=== PATIENT | male | born 1935 | race Caucasian/White ===

== ENCOUNTER 2018-03-03 08:31 | Outpatient (CLI) | payer MEDICARE, OTHER ==
[2018-03-03 09:47] LABS: #Basophils 0.1 thou/uL (0.0-0.2); #Eosinphils 0.1 thou/uL (0.0-0.7); #Lymphocytes 1.5 thou/uL (1.20-3.40); #Monocytes 0.5 thou/uL (0.11-0.59); #Neutrophils 4.2 thou/uL (1.40-6.50); %Basophils 1.4 % (0.0-1.0); %Eosinophils 2.2 % (0.0-10.0); %Lymphocytes 23.7 % (21.0-51.0); %Monocytes 7.6 % (0.0-10.0); %Neutrophils 65.1 % (42.0-75.0); Hemoglobin 14.5 g/dL (14.0-18.0); Mean Corpuscular HGB CONC 31.6 g/dL (32.0-36.0); Mean Corpuscular Hemoglobin 29.2 pg (27.0-31.0); Mean Corpuscular Volume 92.3 fL (78.0-98.0); Mean Platelet Volume 8.5 fL (7.4-10.4); Platelet Count 194 thou/uL (130-400); RBC Distribution Width 12.7 % (11.5-14.5); Red Blood Cell (RBC) Count 4.96 mill/uL (4.70-6.10); White Blood Cell (WBC) Count 6.4 thou/uL (4.8-10.8)
[2018-03-03 10:08] LABS: ALT (SGPT) 16 U/L (8-55); AST (SGOT) 17 U/L (5-34); Albumin 4.3 g/dL (3.4-4.8); Alkaline Phosphatase 77 U/L (40-150); Anion Gap 12 mmol/L (10-20); BUN (Urea Nitrogen) 15 mg/dL (8.4-25.7); Bilirubin, Total 1.2 mg/dL (0.2-1.2); Calc. Creatinine Clearance 0 mL/min (70-130); Calcium 9.9 mg/dL (7.8-10.44); Carbon Dioxide 26 mmol/L (23-31); Chloride 103 mmol/L (98-107); Estimated GFR-MDRD 67; Globulin 2.9 g/dL (2.4-3.5); Glucose 121 mg/dL (83-110); Potassium 4.4 mmol/L (3.5-5.1); Protein, Total 7.2 g/dL (5.8-8.1); Sodium 137 mmol/L (136-145)
== END 2018-03-03 08:32 | disposition home or self-care (01) ==
LOC: LABBT 08:31
PROVIDERS: ATTEND Internal Medicine Cardiovascular Disease
DX: Z01.812 Encounter for preprocedural laboratory examination (principal); I25.10 Atherosclerotic heart disease of native coronary artery without angina pectoris
CPT/HCPCS: 80053; 85025

== ENCOUNTER 2018-03-07 05:55 | Day surgery (SDC) | payer MEDICARE, OTHER ==
[2018-03-03 09:07] VITALS: BMI 27.3
[2018-03-07] MEDS ORDERED: Lidocaine 1% (PF) 30 ML VIAL ONE (06:36)
[2018-03-07] MEDS ORDERED: Midazolam HCl 2 mg/2 ml Vial ONE (07:28)
[2018-03-07] MEDS ORDERED: Fentanyl 100 MCG/2 ML VIAL ONE (07:28)
[2018-03-07] MEDS ORDERED: Iopamidol 370 76% 100 ML VIAL ONE (09:01)
== END 2018-03-07 13:30 | disposition home or self-care (01) ==
LOC: CCL 05:55
PROVIDERS: ATTEND Internal Medicine Cardiovascular Disease
PROC: 4A023N7 Measurement of Cardiac Sampling and Pressure, Left Heart, Percutaneous Approach (ICD-10-PCS; principal; 2018-03-07)
PROC: B2111ZZ Fluoroscopy of Multiple Coronary Arteries using Low Osmolar Contrast (ICD-10-PCS; 2018-03-07)
DX: I25.10 Atherosclerotic heart disease of native coronary artery without angina pectoris (principal); I11.0 Hypertensive heart disease with heart failure; I50.22 Chronic systolic (congestive) heart failure; I47.2 Ventricular tachycardia; I45.10 Unspecified right bundle-branch block; I25.2 Old myocardial infarction; E78.00 Pure hypercholesterolemia, unspecified; E11.9 Type 2 diabetes mellitus without complications; E78.5 Hyperlipidemia, unspecified; Z79.02 Long term (current) use of antithrombotics/antiplatelets; Z79.82 Long term (current) use of aspirin; Z79.84 Long term (current) use of oral hypoglycemic drugs; Z79.899 Other long term (current) drug therapy; Z95.810 Presence of automatic (implantable) cardiac defibrillator; Z95.1 Presence of aortocoronary bypass graft; Z95.5 Presence of coronary angioplasty implant and graft
CPT/HCPCS: 76942; 93459; C1769; 99152; 99153; J1644; J2001; J2250; J3010

== ENCOUNTER 2018-03-18 08:31 | Emergency (ER) | payer MEDICARE, OTHER ==
[2018-03-18] MEDS ORDERED: Mineral Oil ENEMA ONE (08:58)
== END 2018-03-18 09:32 | disposition home or self-care (01) ==
LOC: SCSER 08:31
DX: K59.00 Constipation, unspecified (principal); E11.9 Type 2 diabetes mellitus without complications; I25.2 Old myocardial infarction; E78.5 Hyperlipidemia, unspecified
CPT/HCPCS: 99283

== ENCOUNTER 2019-04-14 09:58 | Observation (INO) | payer MEDICARE, OTHER ==
[2019-04-14 10:42] LABS: Eosinophils 1 % (0-10); Hemoglobin 16.1 g/dL (14.0-18.0); Lymphocytes 15 % (21-51); MDiff Complete? YES; Mean Corpuscular HGB CONC 32.3 g/dL (32.0-36.0); Mean Corpuscular Hemoglobin 29.3 pg (27.0-31.0); Mean Corpuscular Volume 90.7 fL (78.0-98.0); Mean Platelet Volume 11.1 fL (7.4-10.4); Monocytes 4 % (0-10); Neutrophil 77 % (42-75); Platelet Count 201 thou/uL (130-400); Platelet Morphology Comment Appears Adequate; RBC Distribution Width 13.6 % (11.5-14.5); Reactive Lymphocytes 2 % (0-10); White Blood Cell (WBC) Count 9.4 thou/uL (4.8-10.8)
[2019-04-14] MEDS ORDERED: Aspirin Chewable 81 MG TAB ONE (10:47)
[2019-04-14 10:59] LABS: ALT (SGPT) 28 U/L (8-55); AST (SGOT) 26 U/L (5-34); Albumin 4.2 g/dL (3.4-4.8); Alkaline Phosphatase 75 U/L (40-110); Anion Gap 15 mmol/L (10-20); BUN (Urea Nitrogen) 19 mg/dL (8.4-25.7); Bilirubin, Total 0.8 mg/dL (0.2-1.2); CK (CPK) 64 U/L (30-200); Calc. Creatinine Clearance 0 mL/min (70-130); Calcium 9.7 mg/dL (7.8-10.44); Carbon Dioxide 24 mmol/L (23-31); Chloride 105 mmol/L (98-107); Estimated GFR-MDRD 72; Globulin 2.7 g/dL (2.4-3.5); Glucose 138 mg/dL (83-110); Lipase 13 U/L (8-78); Potassium 4.9 mmol/L (3.5-5.1); Protein, Total 6.9 g/dL (5.8-8.1); Sodium 139 mmol/L (136-145)
[2019-04-14] MEDS ORDERED: Acetaminophen/Codeine 30-300mg Tablet ONE (11:11)
[2019-04-14] MEDS ORDERED: Acetaminophen 500 MG TAB ONE (11:12)
[2019-04-14] MEDS ORDERED: Acetaminophen 325 MG TAB PO PRN (11:20)
[2019-04-14] MEDS ORDERED: Ondansetron PF 4 MG/2 ML Vial IVP PRN (11:20)
[2019-04-14] MEDS ORDERED: Ondansetron ODT 4 MG TAB SL PRN (11:20)
--- NOTE | 2019-04-14 11:33 | RAD ---
PORTABLE CHEST 1 VIEW: Date: 04/14/19 Time: 1014 hours HISTORY: Chest pain. FINDINGS: Comparison made with exam of 10/27/14. There are changes of median sternotomy. A right-sided AICD is present. There are leads from a previou s AICD on the left. The heart size is normal. No focal areas of consolidation, pneumothoraces, or ple ural effusions are seen. IMPRESSION: No acute process. POS: [facility]
[2019-04-14 13:46] VITALS: BMI 27.2
[2019-04-14 14:57] LABS: Troponin I 0.021 ng/mL (< 0.028)
[2019-04-14 18:35] LABS: Troponin I 0.022 ng/mL (< 0.028)
[2019-04-14] MEDS ORDERED: Senokot S 8.6-50 MG TAB PO PRN (19:47)
[2019-04-14] MEDS ORDERED: HYDROcodone/Acetaminophen 5/325 mg Tablet PO PRN ×2 (19:47)
[2019-04-14] MEDS ORDERED: Dextrose 5% in Water 1,000 ML IV PRN (19:51)
[2019-04-14] MEDS ORDERED: HumaLOG 300 UNITS/3 ML VIAL SC PRN (19:51)
[2019-04-14] MEDS ORDERED: Dextrose 50% Abboject 50 ML SYRINGE SLOW IVP PRN (19:51)
[2019-04-14] MEDS: Carvedilol 3.125 MG TAB PO SCH (20:16)
[2019-04-14] MEDS: Famotidine 20 MG TAB PO SCH (20:16)
[2019-04-14] MEDS: Sotalol HCl 80 MG TAB PO SCH (20:16)
[2019-04-14] MEDS ORDERED: Atorvastatin Calcium 40 MG TAB PO SCH (21:00)
[2019-04-14] MEDS ORDERED: Magnesium Oxide 250 MG TAB PO SCH (21:00)
--- NOTE | 2019-04-15 00:28 | HP ---
PRIMARY CARE PHYSICIAN: Dr. Gudino. AIRCRAFT RESTORER: Dr. Whitfield. CHIEF COMPLAINT: Chest pain, palpitations. HISTORY OF PRESENT ILLNESS: Mr. Ya is a very pleasant 83-year-old man, who reported to the emergency room today after he was having right-sided chest pain, that moved to the left side. He reports that he was having episodes of low blood pressure with systolic in the 80s to 110s and had been having palpitations for the last 4 days. Reports that he takes sotalol and that the symptoms have been resolving. Reports that he got up this morning around 4:30, started having symptoms, took his medication, and when they did not go away over the next couple of hours with the sotalol, then the patient came to the emergency room. The patient's EKG in the emergency room showed paced rhythm, beats per minute 111, axis is left with [employer] paced. Second EKG, AV paced with AV conduction delay, appropriate capture. The patient has a past medical history pertinent for coronary artery disease, diabetes type 2, basal cell skin cancer, myocardial infarction, hyperlipidemia, and hypertension. Troponin x3 have been indeterminate. Glucose 138. CBC unremarkable. The patient had a cardiac cath in February 2018, which showed a patent MORFIN to LAD, patent CVG to CM, patent stents to RCA, 35% in-stent restenosis at ostium, not occlusive. LVEF 45% proximal and mid inferior akinetic old infarct. The patient was transferred to [facility] for admission to the observation unit for further management. REVIEW OF SYSTEMS: The patient reports hypotension. Reports palpitations. Reports chest pain with radiation to left and right. All other systems reviewed and negative unless mentioned in the HPI. PAST MEDICAL HISTORY: Please see HPI. PAST SURGICAL HISTORY: He has had a CABG x3, pacer defibrillator placed, left shoulder repair, appendectomy, and laparotomy for small bowel obstruction. ALLERGIES: NONE. HOME MEDICATIONS: 1. Aspirin 325 mg p.o. daily. 2. Lipitor 40 mg p.o. at bedtime. 3. Coreg 3.125 mg p.o. b.i.d. 4. Plavix 75 mg p.o. daily. 5. Levothyroxine 50 mcg p.o. daily. 6. Lisinopril 2.5 mg p.o. daily. 7. Magnesium 250 mg p.o. at bedtime. 8. Metformin 500 mg p.o. b.i.d. 9. Sotalol 40 mg p.o. b.i.d. PHYSICAL EXAMINATION: VITAL SIGNS: Blood pressure 111/78, pulse 72, respirations 16, and pO2 sats are 98% on room air. CONSTITUTIONAL: The patient appears nontoxic, is alert and oriented to person, place, and time. EYES: Eyelids are normal to inspection. Pupils are equal, round, and reactive to light. ENT: Mouth exam is normal. Nasal mucosa is swollen. Mucous membranes are moist. NECK: Normal range of motion. Trachea is midline. RESPIRATORY/CHEST: No findings of any respiratory distress. Breath sounds are clear. CARDIOVASCULAR: Regular rate and rhythm. Heart sounds are normal. ABDOMEN: Nontender. Bowel sounds are heard. BACK: Normal range of motion. No tenderness. UPPER EXTREMITIES: Motor strength is normal. Radial pulses are normal. LOWER EXTREMITIES: Normal range of motion. Motor strength is normal. Pedal pulses are normal. There is no edema. NEUROLOGIC: The patient is oriented to person, place, and time. Speech is normal. SKIN: No rash is noted. Warm, dry, and normal in color. PLAN/ASSESSMENT: 1. Chest pain. Troponin x3 has been undetectable. EKG looks stable with no significant T-wave changes. We will interrogate the AICD, ask Cardiology to consult. The patient had a cardiac cath a year ago. We appreciate their recommendations. 2. Diabetes type 2. A.c. and bedtime Accu-Chek sliding scale for coverage. We will restart metformin prior to discharge. 3. Hypothyroidism. We will check a TSH. 4. Hyperlipidemia. We will restart Lipitor. We will check fasting lipids in the morning. 5. Code status has been discussed. The patient would like to be full code. Son is a surrogate decision maker. 6. Deep venous thrombosis and gastrointestinal prophylaxis have been started. 7. Hospital course dependent on clinical findings. Job ID: [id number]
--- NOTE | 2019-04-15 04:57 | PDOC.EVN ---
Event Note - Event Note Event Note: RN called - Pt had NSVT. Will add Mg to labs. 2 gm IV Mg x 1
[2019-04-15 05:28] LABS: #Basophils 0.1 thou/uL (0.0-0.2); #Eosinphils 0.2 thou/uL (0.0-0.7); #Lymphocytes 1.6 thou/uL (1.20-3.40); #Monocytes 0.6 thou/uL (0.11-0.59); #Neutrophils 4.9 thou/uL (1.40-6.50); %Basophils 1.1 % (0.0-1.0); %Eosinophils 2.4 % (0.0-10.0); %Lymphocytes 21.5 % (21.0-51.0); %Monocytes 8.1 % (0.0-10.0); %Neutrophils 66.9 % (42.0-75.0); Hemoglobin 14.3 g/dL (14.0-18.0); Mean Corpuscular HGB CONC 32.3 g/dL (32.0-36.0); Mean Corpuscular Hemoglobin 29.6 pg (27.0-31.0); Mean Corpuscular Volume 91.6 fL (78.0-98.0); Mean Platelet Volume 8.9 fL (7.4-10.4); Platelet Count 165 thou/uL (130-400); Red Blood Cell (RBC) Count 4.82 mill/uL (4.70-6.10); White Blood Cell (WBC) Count 7.4 thou/uL (4.8-10.8)
[2019-04-15] MEDS ORDERED: Magnesium 2 GM/50 ML 2 GM in Premix Bag 1 BAG IVPB SCH (05:45)
[2019-04-15 05:46] LABS: Anion Gap 11 mmol/L (10-20); BUN (Urea Nitrogen) 19 mg/dL (8.4-25.7); Calc. Creatinine Clearance 63 mL/min (70-130); Calcium 9.4 mg/dL (7.8-10.44); Carbon Dioxide 24 mmol/L (23-31); Cardiac Risk 3.5 (Less than 4.5); Chloride 105 mmol/L (98-107); Cholesterol 122 mg/dl (< 200 Desired); Estimated GFR-MDRD 63; Glucose 126 mg/dL (83-110); HDL Cholesterol 35 mg/dL (>60 Neg Risk); LDL Cholesterol, Calculated 67 mg/dL; Potassium 4.3 mmol/L (3.5-5.1); Sodium 136 mmol/L (136-145); Triglycerides 98 mg/dL (Less than 150)
[2019-04-15] MEDS ORDERED: Levothyroxine Sodium 50 MCG TAB PO SCH (06:00)
[2019-04-15 06:03] LABS: Free T4 (Free Thyroxine) 1.02 ng/dL (0.70-1.48); Thyroid Stimulating Hormone 1.8901 uIU/mL (0.35-4.94)
[2019-04-15] MEDS ORDERED: Aspirin 325 MG TAB PO SCH (08:00)
[2019-04-15] MEDS: Famotidine 20 MG TAB PO SCH (08:58)
[2019-04-15] MEDS ORDERED: Lisinopril 2.5 MG TAB PO SCH (09:00)
[2019-04-15] MEDS ORDERED: Clopidogrel Bisulfate 75 MG TAB PO SCH (09:00)
[2019-04-15] MEDS: Sotalol HCl 80 MG TAB PO SCH (11:19)
[2019-04-15] MEDS: Carvedilol 3.125 MG TAB PO SCH (11:19)
[2019-04-15 11:52] VITALS: BP 131/64; TEMP 97.6
--- NOTE | 2019-04-15 13:02 | DIS ---
DATE OF ADMISSION: 04/14/2019 DATE OF DISCHARGE: 04/15/2019 ADMISSION DIAGNOSES: Chest pain, palpitations, and hypotension. DISCHARGE DIAGNOSES: 1. Nonsustained ventricular tachycardia. 2. Atrial fibrillation. 3. Abdominal pain. SECONDARY DISCHARGE DIAGNOSES: 1. Type 2 diabetes. 2. Coronary artery disease, status post coronary artery bypass grafting, presence of automatic implantable cardioverter-defibrillator and defibrillator. CONSULTATIONS: Cardiology. PROCEDURES: None. HISTORY OF PRESENT ILLNESS: This is an 83-year-old male with past medical history of CAD, status post CABG, diabetes, AICD and defibrillator in place for arrhythmias, who presented to the emergency room with irregular heartbeat that was showing up on his machine. The patient states that he noticed irregular heart beating on his machine 3 times in a row. He did not have any palpitations, shortness of breath , diaphoresis, or dizziness when he noticed this. He did have some nonspecific abdominal pain that resolved by the time he came to the ER. He denied any nausea, vomiting, constipation, or diarrhea. The patient also reported that his blood pressure was fluctuating from a systolic of 80 to 110. He was admitted for further evaluation. Hypotension/palpitations: The patient was monitored in observation overnight. His blood pressures remained stable from a systolic of 100 to 128. He had his pacemaker interrogated, which showed some mild ventricular tachycardia and some atrial fibrillation. This was nonsustained, and the patient was not symptomatic. Cardiology was consulted and felt that the patient was stable for followup with his outpatient long term. All of his home medications including sotalol, aspirin , Coreg, and Plavix will be resumed. The patient had a chest x-ray on 04/14, which showed no acute disease. The patient's troponins were negative x3. The patient was advised by Cardiology to only check his blood pressure once a week and to not check his blood pressure when his heart rate is irregular. Hypothyroidism: Continue levothyroxine. Hypertension: Continue lisinopril and Coreg. Diabetes, type 2: Continue metformin. Hyperlipidemia. Continue atorvastatin. CAD, status post CABG: Continue aspirin and Plavix. PHYSICAL EXAMINATION: VITAL SIGNS: Stable on the day of discharge with a temperature of 97.6, heart rate 74, respiratory rate 18, O2 saturation 98% on room air, and blood pressure 131/ 64. GENERAL: The patient is alert and oriented x3. He was noted to be ambulating around the room without any difficulty. CVS: Regular rate and rhythm with no murmurs, rubs, or gallops. LUNGS: Clear to auscultation bilaterally. ABDOMEN: Positive bowel sounds, soft, nontender, nondistended. EXTREMITIES: No edema. PERTINENT LABORATORY DATA: CBC was unremarkable on 04/14 and 04/15. BMP on was normal. Glucose was slightly elevated at 126. Lipid panel shows an LDL of 67, cholesterol 122. TSH was normal at 1.89. PERTINENT IMAGING: Chest x-ray on 04/14/2019, shows no acute process. DISCHARGE DISPOSITION: Stable with a cardiac diet. DISCHARGE MEDICATIONS: 1. Aspirin 325 mg p.o. daily. 2. Atorvastatin 40 mg p.o. at bedtime. 3. Coreg 3.25 mg p.o. b.i.d. 4. Plavix 75 mg p.o. daily. 5. Levothyroxine 50 mcg p.o. daily. 6. Lisinopril 2.5 mg p.o. daily. 7. Magnesium 250 mg p.o. at bedtime. 8. Sotalol 40 mg p.o. b.i.d. 9. Metformin 500 mg p.o. b.i.d. DISCHARGE INSTRUCTIONS: The patient is to follow up with PCP in a week and with his outpatient long term, Dr. Whitfield in 1 to 2 weeks. The patient was advised to check his blood pressure at home once a week and resume all of his home medications. Job ID: [id number] [facility]
--- NOTE | 2019-04-15 17:35 | CON ---
DATE OF CONSULTATION: 04/15/2019 INDICATION FOR CONSULTATION: An 83-year-old patient who had actually noticed some palpitations. He checked his blood pressure on a routine basis every day and did notice that recently he has been getting some abnormalities in the readings such as palpitations, but he denied any chest pain. He did have some right infracostal discomfort in the right lower side. He said that it actually would rotate over to the left side, but this is underneath the rib area, was not chest pain. He has had no other significant symptoms or problems. He did undergo a recent cardiac catheterization, which showed three-vessel coronary artery disease. He has had bypass surgery in the past. He has a patent MOTA to the left anterior descending artery. He also had a patent saphenous vein graft to an obtuse marginal branch. He had a stent in the right coronary artery, which also had some mild in-stent restenoses, but no significant obstruction to the flow. He has also had an AICD implant. He has had recent interrogation of the device and the device actually was interrogated today, again on his admission and he has had 3 episodes of nonsustained ventricular tachycardia only lasting 1 to 2 seconds, which occurred in October of this year and also in January and February just for couple beats a day. He had an episode, which was 9 beats of nonsustained ventricular tachycardia, which occurred about 4:30 this a.m., he was absolutely asymptomatic and device appears to be functioning normally. He does have some extra PACs and PVCs. Otherwise, the device function is normal and there are no significant abnormalities and the nonsustained ventricular tachycardia was only 5 beats. He has only had 3 episodes as noted, which lasts only for a few beats. At this time, he is chest pain-free. He is asymptomatic and feels like he is able to go home. He does have a history of paroxysmal atrial fibrillation, but there has been no evidence of atrial fibrillation noted on the monitor interrogation today since his last interrogation of the device, which was back in, I believe, October of this year. His cardiac enzymes are negative. EKG does not show any acute ST-segment changes. He does have pacing on the EKG from the device and this is 100% ventricular pacing. He does have a dual-chamber device. He has an atrial and ventricular lead, but he does not have a biventricular device. PAST MEDICAL HISTORY: Significant for the bypass surgery. He has had an AICD placement. He has an appendectomy. He has had lysis of adhesions. He has hypercholesterolemia. He has hypertension, diabetes, history of ventricular tachycardia in the past for which he underwent AICD implant. He has mild anemia. FAMILY HISTORY: Mother had heart disease. No other significant family history of heart disease. He no longer smokes. ALLERGIES: NONE. MEDICATIONS: Prior to admission included; 1. Lisinopril. 2. Metformin. 3. Levothyroxine. 4. Coreg. 5. Magnesium. 6. Nitroglycerin as needed. 7. Plavix. 8. Lipitor. 9. Aspirin. 10. Sotalol. REVIEW OF SYSTEMS: A 12-point review of systems is unremarkable except for the palpitations. PHYSICAL EXAMINATION: GENERAL: Reveals a very pleasant, well-developed, elderly gentleman. VITAL SIGNS: His blood pressure is 117/70, heart rate is 88 and regular with occasional ectopy, respiratory rate is 13, he is afebrile. HEENT: Shows the head to be normocephalic and atraumatic. Carotid pulses are present. I did not hear any significant bruits. There is no JVD noted. CHEST: Clear to auscultation without rales, rhonchi, or wheezing. CARDIOVASCULAR: Reveals a regular rate and rhythm with occasional ectopy. There were no gross murmurs, heaves, thrills, bruits, or rubs noted. ABDOMEN: Soft and nontender. Positive bowel sounds are present. EXTREMITIES: Show no clubbing or cyanosis. No significant edema was noted. Pedal pulses are present. NEUROLOGIC: The patient appears to be fully intact. DIAGNOSTIC IMPRESSION: EKG shows a sinus rhythm. He appears to be pacing all the time except for an occasional ectopy. The device interrogation is normal. LABORATORY DATA: Shows a hemoglobin of 14.3, WBC of 7.4. His potassium was 4.3 , BUN was 19, creatinine 1.1, blood sugar was 126, LDL was 67, TSH was 1.89. Cardiac enzymes are negative. IMPRESSION: 1. An 83-year-old gentleman with normal functioning AICD, which is pacing of the ventricles with occasional palpitations and one episode of 5 beats of nonsustained ventricular tachycardia, for which he was completely asymptomatic. At this time , we would continue his present medications and there is no indication that he has had any significant ischemia. He denies any chest pain and recent cardiac catheterization was unremarkable, this was performed in 2018, I think approximately one year ago. Should he have any further symptoms, a repeat cardiac catheterization may be indicated but not at this time. He has an appointment to see Dr. Whitfield in the next couple weeks, and will continue with this appointment. 2. History of diabetes, which is under good control. 3. History of coronary artery disease. This also appears to be stable at this time. 4. History of hypercholesterolemia. He will continue on his present medications. 5. History of bypass surgery. The bypasses apparently were stable on the last cardiac catheterization about a year ago. 6. Nonsustained ventricular tachycardia. The device appears to be working normally. He has not had enough beats to have the device discharge and he has not had any episodes of the discharges from the device since he has been implanted. At this time, I feel the patient is safe to be discharged to home. He will follow up with Dr. Whitfield in April. Job ID: [id number] [facility]
== END 2019-04-15 12:33 | disposition home or self-care (01) ==
LOC: SCSER 09:58 → 2SW 11:20
PROVIDERS: ADMIT Family Medicine; ATTEND Family Medicine
DX: I47.1 Supraventricular tachycardia (principal); I48.91 Unspecified atrial fibrillation; R10.9 Unspecified abdominal pain; I95.9 Hypotension, unspecified; E03.9 Hypothyroidism, unspecified; I10 Essential (primary) hypertension; E11.9 Type 2 diabetes mellitus without complications; E78.5 Hyperlipidemia, unspecified; I25.10 Atherosclerotic heart disease of native coronary artery without angina pectoris; E78.00 Pure hypercholesterolemia, unspecified; Z87.891 Personal history of nicotine dependence; Z79.02 Long term (current) use of antithrombotics/antiplatelets; Z79.82 Long term (current) use of aspirin; Z79.84 Long term (current) use of oral hypoglycemic drugs; Z79.899 Other long term (current) drug therapy; Z95.1 Presence of aortocoronary bypass graft; Z95.810 Presence of automatic (implantable) cardiac defibrillator
CPT/HCPCS: 71045; 80048; 80053; 80061; 82550; 82962 ×2; 83690; 83735; 84439; 84443; 84484 ×2; 85025 ×2; 93005; 99285; G0378 ×3; 36415; 36416

== ENCOUNTER 2020-10-14 13:00 | Emergency (ER) | payer MEDICARE, OTHER | END 2020-10-14 15:54 | disposition home or self-care (01) | LOC: ERS 13:00 | DX: M25.561 Pain in right knee (principal); E11.9 Type 2 diabetes mellitus without complications; E78.5 Hyperlipidemia, unspecified; E78.00 Pure hypercholesterolemia, unspecified; I25.2 Old myocardial infarction ==

== ENCOUNTER 2024-05-27 05:45 | Inpatient (IN) | payer MEDICARE ==
[2024-05-27 06:33] LABS: #Basophils 0.06 10x3/uL (0.0-0.2); %Basophils 0.6 % (0.0-1.0); %Eosinophils 1.1 % (0.0-10.0); %Lymphocytes 16.4 % (21.0-51.0); %Monocytes 7.4 % (0.0-10.0); %Neutrophils 74.1 % (42.0-75.0); Hematocrit 42.3 % (42.0-52.0); Mean Corpuscular HGB CONC 33.1 g/dL (32.0-36.0); Mean Corpuscular Hemoglobin 29.7 pg (27.0-31.0); Mean Corpuscular Volume 89.8 fL (78.0-98.0); Mean Platelet Volume 10.2 fL (7.4-10.4); Platelet Count 225 10x3/uL (130-400); RBC Distribution Width 14.8 % (11.5-14.5); Red Blood Cell (RBC) Count 4.71 mill/uL (4.70-6.10)
[2024-05-27 06:58] LABS: ALT (SGPT) 36 U/L (8-55); AST (SGOT) 35 U/L (5-34); Albumin 3.8 g/dL (3.4-4.8); Alkaline Phosphatase 82 U/L (40-110); Anion Gap 16 mmol/L (10-20); BUN (Urea Nitrogen) 18 mg/dL (8.4-25.7); Bilirubin, Total 1.1 mg/dL (0.2-1.2); Calc. Creatinine Clearance 0 mL/min (70-130); Calcium 9.9 mg/dL (7.8-10.44); Carbon Dioxide 24 mmol/L (23-31); Chloride 101 mmol/L (98-107); Estimated GFR 81; Globulin 3.3 g/dL (2.4-3.5); Glucose 147 mg/dL (83-110); Potassium 5.1 mmol/L (3.5-5.1); Protein, Total 7.1 g/dL (5.8-8.1); Sodium 136 mmol/L (136-145)
[2024-05-27 07:01] LABS: Troponin I 0.025 ng/mL (< 0.028)
[2024-05-27] MEDS ORDERED: Furosemide 40 MG (4 mL) VIAL ONE (08:07)
[2024-05-27] MEDS ORDERED: Senokot S 8.6-50 MG TAB PO PRN (08:48)
[2024-05-27] MEDS ORDERED: Dextrose 5% in Water 1,000 ML IV PRN (08:48)
[2024-05-27] MEDS ORDERED: Acetaminophen 325 MG TAB PO PRN (08:48)
[2024-05-27] MEDS ORDERED: Insulin Regular, Human 100 UNIT/ML 10 ML VIAL SC PRN (08:48)
[2024-05-27] MEDS ORDERED: Glucagon 1 MG/ML KIT IM PRN (08:48)
[2024-05-27] MEDS ORDERED: Dextrose 50% Abboject 50 ML SYRINGE SLOW IVP PRN (08:48)
[2024-05-27 09:50] LABS: Magnesium 2.3 mg/dL (1.6-2.6)
[2024-05-27] MEDS: Carvedilol 6.25 MG TAB PO SCH (10:24)
[2024-05-27] MEDS: Enoxaparin 40 MG (0.4 mL) SYRINGE SC SCH (10:25)
[2024-05-27 10:42] VITALS: BMI 24.9
[2024-05-27] MEDS: Furosemide 20 MG (2 mL) VIAL SLOW IVP SCH (14:04)
[2024-05-27] MEDS: metFORMIN 500 MG TAB PO SCH (20:33)
[2024-05-27] MEDS: Atorvastatin Calcium 40 MG TAB PO SCH (20:33)
[2024-05-27] MEDS: Aspirin 81 mg Enteric Coated Tablet PO SCH (20:33)
[2024-05-27] MEDS: Lisinopril 2.5 MG TAB PO SCH (20:33)
[2024-05-27] MEDS: Sotalol HCl 80 MG TAB PO SCH (20:33)
[2024-05-28 05:17] LABS: Anion Gap 14 mmol/L (10-20); BUN (Urea Nitrogen) 24 mg/dL (8.4-25.7); Calc. Creatinine Clearance 49 mL/min (70-130); Calcium 9.4 mg/dL (7.8-10.44); Carbon Dioxide 26 mmol/L (23-31); Chloride 98 mmol/L (98-107); Estimated GFR 59; Glucose 131 mg/dL (83-110); Sodium 134 mmol/L (136-145)
[2024-05-28] MEDS: Levothyroxine Sodium 50 MCG TAB PO SCH (06:13)
[2024-05-28] MEDS: Ezetimibe 10 MG TAB PO SCH (08:28)
[2024-05-28] MEDS: Clopidogrel Bisulfate 75 MG TAB PO SCH (08:28)
[2024-05-28] MEDS: Amiodarone 200 MG TAB PO SCH (14:15)
[2024-05-28] MEDS: metFORMIN 500 MG TAB PO SCH (17:44)
[2024-05-29 04:49] LABS: Anion Gap 15 mmol/L (10-20); BUN (Urea Nitrogen) 25 mg/dL (8.4-25.7); Calc. Creatinine Clearance 66 mL/min (70-130); Calcium 9.6 mg/dL (7.8-10.44); Carbon Dioxide 24 mmol/L (23-31); Chloride 99 mmol/L (98-107); Estimated GFR 83; Glucose 120 mg/dL (83-110); Potassium 3.9 mmol/L (3.5-5.1); Sodium 134 mmol/L (136-145)
[2024-05-29] MEDS: Spironolactone 25 MG TAB PO SCH (11:16)
[2024-05-29] MEDS: Potassium Chloride 20 MEQ TAB PO SCH (11:17)
[2024-05-29] MEDS: Empagliflozin 10 MG TAB PO SCH (11:17)
[2024-05-29] MEDS: Carvedilol 3.125 MG TAB PO SCH (20:57)
[2024-05-30] MEDS: Spironolactone 25 MG TAB PO SCH (08:02)
[2024-05-30] MEDS: Empagliflozin 10 MG TAB PO SCH (08:04)
[2024-05-30 08:09] VITALS: BP 109/55; TEMP 97.6
[2024-05-30] MEDS ORDERED: Amiodarone 200 MG TAB PO SCH (21:00)
== END 2024-05-30 13:17 | disposition home or self-care (01) | DRG 291 ==
LOC: ERS 05:45 → OBS 07:59 → OBSVTOIN 05-29 10:04
PROVIDERS: ADMIT Family Medicine; ATTEND Hospitalist
DX: I11.0 Hypertensive heart disease with heart failure (principal); I50.23 Acute on chronic systolic (congestive) heart failure; I48.19 Other persistent atrial fibrillation; I25.10 Atherosclerotic heart disease of native coronary artery without angina pectoris; E78.5 Hyperlipidemia, unspecified; Z90.49 Acquired absence of other specified parts of digestive tract; Z95.1 Presence of aortocoronary bypass graft; Z98.890 Other specified postprocedural states; E11.9 Type 2 diabetes mellitus without complications; E03.9 Hypothyroidism, unspecified; Z79.82 Long term (current) use of aspirin; Z79.899 Other long term (current) drug therapy; Z79.84 Long term (current) use of oral hypoglycemic drugs
CPT/HCPCS: 36415; 36416; 71045; 80048; 80053; 83735; 83880; 84484; 85025; 93005; 96372; 96374; 96376; G0378; J1650; J1940

== ENCOUNTER 2024-06-08 09:22 | Day surgery (SDC) | payer MEDICARE ==
[2024-06-07 09:27] VITALS: BMI 23.8
[2024-06-08 10:34] LABS: #Basophils 0.05 10x3/uL (0.0-0.2); %Basophils 0.5 % (0.0-1.0); %Eosinophils 0.3 % (0.0-10.0); %Lymphocytes 14.7 % (21.0-51.0); %Monocytes 6.4 % (0.0-10.0); %Neutrophils 77.4 % (42.0-75.0); Hematocrit 43.9 % (42.0-52.0); Hemoglobin 14.8 g/dL (14.0-18.0); Mean Corpuscular HGB CONC 33.7 g/dL (32.0-36.0); Mean Corpuscular Hemoglobin 29.5 pg (27.0-31.0); Mean Corpuscular Volume 87.6 fL (78.0-98.0); Mean Platelet Volume 10.4 fL (7.4-10.4); Platelet Count 252 10x3/uL (130-400); RBC Distribution Width 14.4 % (11.5-14.5); Red Blood Cell (RBC) Count 5.01 mill/uL (4.70-6.10)
[2024-06-08 10:48] LABS: Anion Gap 18 mmol/L (10-20); BUN (Urea Nitrogen) 19 mg/dL (8.4-25.7); Calc. Creatinine Clearance 43 mL/min (70-130); Calcium 9.9 mg/dL (7.8-10.44); Carbon Dioxide 21 mmol/L (23-31); Chloride 96 mmol/L (98-107); Estimated GFR 53; Glucose 117 mg/dL (83-110); Potassium 4.8 mmol/L (3.5-5.1); Sodium 130 mmol/L (136-145)
[2024-06-08] MEDS ORDERED: PROPOFOL 20 ML ONE (11:22)
== END 2024-06-08 12:56 | disposition home or self-care (01) ==
LOC: SDC 09:22
PROVIDERS: ATTEND Internal Medicine Cardiovascular Disease
DX: I48.0 Paroxysmal atrial fibrillation (principal); I50.22 Chronic systolic (congestive) heart failure; E78.00 Pure hypercholesterolemia, unspecified; I47.29 Other ventricular tachycardia; I25.118 Atherosclerotic heart disease of native coronary artery with other forms of angina pectoris; D64.9 Anemia, unspecified; I25.2 Old myocardial infarction; E11.9 Type 2 diabetes mellitus without complications; I45.10 Unspecified right bundle-branch block; I35.0 Nonrheumatic aortic (valve) stenosis; Z95.810 Presence of automatic (implantable) cardiac defibrillator; Z79.890 Hormone replacement therapy; Z79.84 Long term (current) use of oral hypoglycemic drugs; Z79.899 Other long term (current) drug therapy; Z79.82 Long term (current) use of aspirin; Z79.02 Long term (current) use of antithrombotics/antiplatelets
CPT/HCPCS: 80048; 85025; 92960; J2704; 36415; 93005; 93010

== ENCOUNTER 2024-12-15 07:20 | Emergency (ER) | payer MEDICARE ==
[2024-12-15 08:04] LABS: #Basophils Less than 0.03 10x3/uL (0.0-0.2); #Eosinophils Less than 0.03 10x3/uL (0.0-0.7); #Monocytes 0.55 10x3/uL (0.11-0.59); #Neutrophils 11.66 10x3/uL (1.40-6.50); %Basophils 0.1 % (0.0-1.0); %Eosinophils 0.2 % (0.0-10.0); %Lymphocytes 5.3 % (21.0-51.0); %Monocytes 4.2 % (0.0-10.0); %Neutrophils 89.7 % (42.0-75.0); Hematocrit 41.6 % (42.0-52.0); Hemoglobin 13.5 g/dL (14.0-18.0); Mean Corpuscular HGB CONC 32.5 g/dL (32.0-36.0); Mean Corpuscular Hemoglobin 28.7 pg (27.0-31.0); Mean Corpuscular Volume 88.5 fL (78.0-98.0); Mean Platelet Volume 9.6 fL (7.4-10.4); Platelet Count 254 10x3/uL (130-400); RBC Distribution Width 16.1 % (11.5-14.5)
[2024-12-15 08:45] LABS: ALT (SGPT) 26 U/L (Less than 45); AST (SGOT) 40 U/L (11-34); Albumin 3.2 g/dL (3.1-4.5); Alkaline Phosphatase 116 U/L (40-110); Anion Gap 17 mmol/L (10-20); BUN (Urea Nitrogen) 36 mg/dL (8.4-25.7); Bilirubin, Total 1.2 mg/dL (0.3-1.2); Calc. Creatinine Clearance 0 mL/min (70-130); Carbon Dioxide 27 mmol/L (23-31); Chloride 91 mmol/L (98-107); Estimated GFR 53; Globulin 3.9 g/dL (2.4-3.5); Glucose 148 mg/dL (83-110); Lipase 14 U/L (8-78); Potassium 5.3 mmol/L (3.5-5.1); Protein, Total 7.1 g/dL (5.8-8.1); Sodium 130 mmol/L (136-145)
[2024-12-15 09:19] LABS: Bacteria/HPF None Seen HPF (None Seen); Bilirubin Negative (Negative); Blood, Urine 1+ (Negative); CAUTI Indications for Culture Dysuria,urgency,freq; Clarity Clear (Clear); Glucose, Urine (Dipstick) Greater than 1000 mg/dL (Negative); Ketone, Urine Negative (Negative); Leukocyte Negative Leu/uL (Negative); Nitrite Negative (Negative); Protein, Urine (Dipstick) Negative (Neg-Trace); Specific Gravity, Urine 1.016 (1.002-1.036); Squamous Epithelial None Seen HPF (0-3); Urobilinogen Normal mg/dL (Less than 2); WBC/HPF 0-3 HPF (0-3)
[2024-12-15 10:20] LABS: Urine Culture Reflex No No
[2024-12-15] MEDS ORDERED: Iopamidol-370 76% 500 ML MDV (1 ML CHARGE) ONE (13:03)
== END 2024-12-15 13:30 | disposition home or self-care (01) ==
LOC: ERS 07:20
DX: R33.9 Retention of urine, unspecified (principal); E11.9 Type 2 diabetes mellitus without complications; I50.9 Heart failure, unspecified; I25.2 Old myocardial infarction; Z79.84 Long term (current) use of oral hypoglycemic drugs; Z79.899 Other long term (current) drug therapy; Z79.82 Long term (current) use of aspirin
CPT/HCPCS: 74177; 80053; 81001; 83690; 85025; Q9967; 51702; 51798